=== PATIENT | male | born 1990 | race Caucasian/White ===

== ENCOUNTER 2021-01-17 01:07 | Emergency (ER) | payer BC, SELFPAY ==
--- NOTE | 2021-01-17 01:10 | W.ED.GENAD ---
Discharge Plan Disposition Patient Disposition: HOME Condition: Good Discharge Details Clinical Impression: Left ankle sprain Primary Care Provider: Diomedes Botello ED Provider: Jaden Washington Home Meds and New Rx's Prescriptions: No Action No Known Home Meds RF: 0 Discharge Instructions Instructions: Ankle Sprain (ED) Additional Instructions: X-rays negative for fracture. Due to the significant swelling and bruising, likely significant sprain of ligament. Walking boot and weight-bear as tolerated. Ice and elevate over the weekend. Ibuprofen and/or acetaminophen as needed for pain. Will refer to orthopedics for recheck in 1 to 2 weeks. Return to ED if any issues. Referrals: Roddy Puentes MD [ [facility] STAFF PHYSICIAN] - Medical Decision Making X-ray of the left ankle ordered. Motrin given. No fracture seen on my review of x-ray. Will place patient in walking boot for severe sprain. Ice, elevate, nonsteroidals over the weekend. Will refer to orthopedics for follow-up in 1 to 2 weeks. Return to ED for any concerns/problems. HPI General Mode of arrival: wheelchair. Date/Time Provider Initiated Documentation: 01/17/21 01:10. Limitations to Documentation: no limitations. Information obtained by: patient and RN notes reviewed. HPI Narrative: Patient presents to ED with left ankle injury. Patient slipped and fell this evening. Denies upper body injury. No loss of consciousness. No neck pain. Injury to the left ankle only. Initially able to ambulate some but unable to bear weight at this time. Left ankle markedly swollen and bruised. No complaint of pain in the knee or foot. No complaint of numbness or weakness. Related Data Home Medications Medication Instructions Recorded Confirmed Unknown [No Known Home Meds] 01/17/21 01/17/21 Allergies Allergy/AdvReac Type Severity Reaction Status Date / Time No Known Allergies Allergy Unverified 01/17/21 01:16 Review of Systems Narrative: As documented in HPI otherwise negative as below. Const: no fever, chills, weakness Resp: no cough, SOB, pleuritic pain CV: no CP, diaphoresis, edema, syncope GI: no abdominal pain, nausea, vomiting, diarrhea Neuro: no headache, numbness, focal weakness, confusion PFSH Medical History No significant past medical history Surgical History No significant past surgical history Social History Smoking/Tobacco Use Status: Never Smoking risk assessment performed?: Yes Alcohol Intake: current Alcohol Intake frequency: holidays/special occasions only Alcohol type: beer, wine and hard liquor Drug use: Never Substance use type: does not use Do you feel safe at home: Yes Do you feel safe in your relationship?: Yes Exam Narrative Exam Narrative: Const: WDWN male in NAD. HEENT: NC/AT. Normal facial exam. Neck: Supple. Trachea midline. Lungs: Normal respiratory effort. Cor: RRR. Good distal pulse. Neuro: A+O x 3. Normal speech, mentation. Cranial nerves II - XII grossly intact. No gross motor or sensory deficit. Ext: LLE with marked swelling left lateral ankle. Pain with range of motion of ankle. No pain or tenderness proximal tib-fib/knee area. No foot tenderness or swelling. MVI. Skin: Warm and dry without wounds. Bruising left lateral ankle.
[2021-01-17 01:13] VITALS: BP 144/80; PULSE 95; RESP 16; TEMP 37.2; O2SAT 97
[2021-01-17] MEDS: Ibuprofen 600 MG TAB PO (01:24)
--- NOTE | 2021-01-17 01:35 | DI.RAD_ITS ---
EXAM: XR ANKLE LT COMPLETE CLINICAL HISTORY: fall. TECHNIQUE: 2D digital imaging was performed. COMPARISON: No exams were available for comparison FINDINGS: There is abundant soft tissue swelling over the lateral aspect of the ankle and lower leg. No fractu re or widening of the mortise. No radiopaque foreign body. No osseous lesions. The talar dome appe ars unremarkable. There is no gas in the soft tissues. IMPRESSION: Soft tissue swelling. No fractures evident. DATA REPOSITORY: RADIATION DOSE DELIVERED:
--- NOTE | 2021-01-17 01:56 | DI.VRAD_ITS ---
PROCEDURE INFORMATION: Exam: XR Left Ankle Exam date and time: 01/17/2021 1:20 AM Age: 30 years old Clinical indication: Injury or trauma; Fall; Swelling (edema); Ankle; Left; Injury date: 01/16/21 TECHNIQUE: Imaging protocol: XR Left ankle. Views: 3 or more views. COMPARISON: CR LEFT FOOT COMPLETE 04/10/2016 2:01 PM FINDINGS: Bones/joints: No fracture or dislocation. Soft tissues: Prominent lateral soft tissue swelling. IMPRESSION: 1. Prominent lateral soft tissue swelling. No foreign body. No soft tissue gas. 2. No fracture or dislocation. Dictated and Authenticated by: Devin Valencia MD. Ordering:NIKA Stanley MD
== END 2021-01-17 02:05 | disposition home or self-care (01) ==
LOC: ER 01:57
PROVIDERS: Emergency Provider Emergency Medicine; PCP Family Medicine
DX: S93.492A Sprain of other ligament of left ankle, initial encounter (principal); W01.0XXA Fall on same level from slipping, tripping and stumbling without subsequent striking against object, initial encounter
CPT/HCPCS: 29515; 99283; 73610